=== PATIENT | male | born 1960 | race Caucasian/White ===

== ENCOUNTER → 2017-01-20 | Outpatient (CLI) | payer MEDICARE | LOC: KOH-I 10:31 | DX: I10 Essential (primary) hypertension (principal); Z01.818 Encounter for other preprocedural examination; Z91.041 Radiographic dye allergy status; Z91.013 Allergy to seafood | CPT/HCPCS: 71020 ==

== ENCOUNTER 2017-02-22 16:12 | Emergency (ER) | payer MEDICARE ==
[2017-02-22 18:01] LABS: HEMOGLOBIN 15.4 gm/dl (14.0-17.5); RED BLOOD COUNT 4.81 M/UL (4.20-5.50); WHITE BLOOD COUNT 7.6 K/UL (4.5-11.0)
[2017-02-22 18:29] LABS: BUN/CREATININE RATIO 23 (0-10)
== END 2017-02-22 21:11 | disposition home or self-care (01) ==
LOC: ER1 16:12
PROVIDERS: Specialist/Technologist Athletic Trainer
DX: R07.89 Other chest pain (principal); E11.9 Type 2 diabetes mellitus without complications; I10 Essential (primary) hypertension; E78.5 Hyperlipidemia, unspecified; Z85.46 Personal history of malignant neoplasm of prostate; Z91.013 Allergy to seafood; Z88.8 Allergy status to other drugs, medicaments and biological substances
CPT/HCPCS: 71010; 80053; 82550; 82553; 83874; 83880; 84484; 85025; 93005; 96372; 99285; J1885

== ENCOUNTER → 2021-07-11 | Outpatient (CLI) | payer MEDICARE | LOC: MRI 13:12 | DX: H90.3 Sensorineural hearing loss, bilateral (principal) | CPT/HCPCS: 36415; 70553; 82565; 84520; A9577 ==

== ENCOUNTER → 2022-02-18 | Outpatient (CLI) | payer MEDICARE | LOC: KOH-I 11:46 | DX: S29.9XXA Unspecified injury of thorax, initial encounter (principal); R07.81 Pleurodynia | CPT/HCPCS: 71101 ==